=== PATIENT | female | born 1960 | race Hispanic/Latino ===

== ENCOUNTER 2020-04-25 17:30 | Inpatient (IN) | payer BC, OTHER ==
[~2020-04-25] VITALS: Ht 157.5 cm; Wt 71.2 kg
--- NOTE | 2020-04-25 18:01 | NUR ---
Pt SVT on ekg monitor tech, EKG & IV done. Dr Allen at bedside with charge -RN. Crash cart at bedside at this time.
[2020-04-25] MEDS ORDERED: ADENOSINE 6MG/2ML 1 ML ONE (18:12)
[2020-04-25] MEDS ORDERED: METOPROLOL TARTRATE INJ 1 MG/ML VIAL IV ONE (18:15)
[2020-04-25] MEDS ORDERED: SODIUM CHLORIDE 0.9% 1000ML 1,000 ML IV SCH (18:15)
[2020-04-25] MEDS ORDERED: SODIUM CHLORIDE 0.9% 1000ML 1,000 ML ONE (18:19)
[2020-04-25] MEDS ORDERED: METOPROLOL TARTRATE INJ 1 MG/ML VIAL ONE (18:20)
[2020-04-25 18:27] LABS: BASOPHILS # (AUTO) 0.1 (0.0-0.1); BASOPHILS % 0.8 % (0.0-1.0); EOSINOPHILS # (AUTO) 0.1 (0.0-0.4); EOSINOPHILS % 0.8 % (0.0-6.0); HEMATOCRIT 38.1 % (34.2-44.1); HEMOGLOBIN 12.7 g/dL (12.0-16.0); LYMPHOCYTES # (AUTO) 4.6 (1.0-3.2); LYMPHOCYTES % 51.5 % (18.0-39.1); MEAN CORPUSCULAR HEMOGLOBIN 29.5 pg (28-32); MEAN CORPUSCULAR HGB CONC 33.3 g/dL (31-35); MEAN CORPUSCULAR VOLUME 88.6 fL (81-99); MONOCYTES # (AUTO) 0.6 (0.2-0.8); MONOCYTES % 6.3 % (4.4-11.3); NEUTROPHILS # (AUTO) 3.6 (2.1-6.9); NEUTROPHILS % 40.4 % (38.7-80.0); PLATELET COUNT 416 x10e3/uL (140-360); RED CELL DISTRIBUTION WIDTH 12.4 % (11.7-14.4)
--- NOTE | 2020-04-25 18:30 | NUR ---
Patient HR from SVT HR:202 bpm converted to NSR HR:95 bpm post adenosine 6mg IV push was given. Pt tolerated it well with no further complaints made.
--- NOTE | 2020-04-25 18:33 | Diagnostic Imaging Report ---
EXAMINATION: CHEST SINGLE (PORTABLE) COMPARISON: None INDICATION: ^chest pain ^Y DISCUSSION: Frontal view of the chest obtained at 1819 hours. HEART AND MEDIASTINUM: The cardiomediastinal silhouette is unremarkable. LINES: Multiple EKG wires overlie the chest. LUNGS/PLEURA: The lungs are well inflated and clear. No pneumonia or pulmonary edema. No pleural effusion or pneumothorax. BONES AND SOFT TISSUES: No focal osseous lesion. The soft tissues are normal. IMPRESSION: No acute cardiopulmonary disease. Signed by: Dr. Marlee Higgins MD on 04/25/2020 6:30 PM
[2020-04-25 18:39] LABS: ALBUMIN 4.5 g/dL (3.5-5.0); ALBUMIN/GLOBULIN RATIO 1.1 (0.8-2.0); ANION GAP 17.9 mmol/L (8-16); CALCIUM 9.5 mg/dL (8.4-10.2); POTASSIUM 3.9 mmol/L (3.5-5.1)
[2020-04-25 18:45] LABS: CREATINE KINASE MB 1.9 ng/mL (0-5.0)
--- NOTE | 2020-04-25 18:48 | Emergency Department Note ---
History of Present Illnes History of Present Illness Chief Complaint: COVID PUI History of Present Illness This is a 60 year old female "I was at work when I start having left sided chest pain that radiates to my left arm and palpitation" onset 1630 this afternoon. Pt had a Hx of Tachycardia. STATES SHE DID DRINK 2 CUPS OF COFFEE TODAY, STATES HAS BEEN DEALING WITH THIS PROBLEM FOR PAST 6 YEARS. . Historian: Patient Arrival Mode: Car Onset (how long ago): hour(s) (1.5) Location: CHEST Quality: PAIN, PALPITATIONS Radiation: Reports extremity Severity: severe Onset quality: sudden Duration (how long): hour(s) (1.5) Progression: unchanged Chronicity: recurrent Context: Denies recent illness, Denies recent surgery, Denies trauma/injury Relieving factors: none Exacerbating factors: none Associated symptoms: Reports denies other symptoms Treatments prior to arrival: none Past Medical/Family History Physician Review I have reviewed the patient's past medical and family history. Any updates have been documented here. Past Medical History Recent Fever: No Clinical Suspicion of Infectio: No New/Unexplained Change in Ment: No Other Medical History: Tachycardia Past Surgical History: None Social History Smoking Cessation: Never Smoker Alcohol Use: None Any Illegal Drug Use: No Physically hurt or threatened: No Family History Family history of heart diseas: No Other family history HTN Review of Systems Review of Systems Constitutional: Reports no symptoms EENTM: Reports no symptoms Cardiovascular: Reports as per HPI Respiratory: Reports no symptoms Gastrointestinal: Reports no symptoms Genitourinary: Reports no symptoms Musculoskeletal: Reports no symptoms Integumentary: Reports no symptoms Neurological: Reports no symptoms Psychological: Reports no symptoms Endocrine: Reports no symptoms Hematological/Lymphatic: Reports no symptoms Physical Exam Related Data Triage Vital Signs Vital Signs Date Time Temp Pulse Resp B/P (MAP) Pulse Ox O2 Delivery O2 Flow Rate FiO2 04/25/20 17:58 98.8 202 16 112/99 99 Room Air Physical Exam CONSTITUTIONAL Constitutional: Present well-developed, Present well-nourished, Present distressed (MILD) HENT HENT: Present normocephalic, Present atraumatic, Present oropharynx clear/moist, Present nose normal HENT L/R: Present left ext ear normal, Present right ext ear normal EYES Eyes: Reports PERRL, Reports conjunctivae normal NECK Neck: Present ROM normal PULMONARY Pulmonary: Present effort normal, Present breath sounds normal CARDIOVASCULAR Cardiovascular: Present regular rhythm, Present heart sounds normal, Present capillary refill normal, Present tachycardia (200) GASTROINTESTINAL Abdominal: Present soft, Present nontender, Present bowel sounds normal GENITOURINARY Genitourinary: Present exam deferred SKIN Skin: Present warm, Present dry MUSCULOSKELETAL Musculoskeletal: Present ROM normal NEUROLOGICAL Neurological: Present alert, Present oriented x 3, Present no gross motor or sensory deficits PSYCHOLOGICAL Psychological: Present mood/affect normal, Present judgement normal Results Laboratory Result Diagram: 04/25/20 1700 04/25/20 1700 Laboratory Laboratory Tests Test 04/25/20 20:33 04/25/20 17:00 Creatine Kinase MB 2.80 ng/mL (0-5.0) 1.90 ng/mL (0-5.0) Troponin I 0.394 ng/mL (0-0.300) 0.046 ng/mL (0-0.300) White Blood Count 8.89 x10e3/uL (4.8-10.8) Red Blood Count 4.30 x10e6/uL (3.6-5.1) Hemoglobin 12.7 g/dL (12.0-16.0) Hematocrit 38.1 % (34.2-44.1) Mean Corpuscular Volume 88.6 fL (81-99) Mean Corpuscular Hemoglobin 29.5 pg (28-32) Mean Corpuscular Hemoglobin Concent 33.3 g/dL (31-35) Red Cell Distribution Width 12.4 % (11.7-14.4) Platelet Count 416 x10e3/uL (140-360) Neutrophils (%) (Auto) 40.4 % (38.7-80.0) Lymphocytes (%) (Auto) 51.5 % (18.0-39.1) Monocytes (%) (Auto) 6.3 % (4.4-11.3) Eosinophils (%) (Auto) 0.8 % (0.0-6.0) Basophils (%) (Auto) 0.8 % (0.0-1.0) Neutrophils # (Auto) 3.6 (2.1-6.9) Lymphocytes # (Auto) 4.6 (1.0-3.2) Monocytes # (Auto) 0.6 (0.2-0.8) Eosinophils # (Auto) 0.1 (0.0-0.4) Basophils # (Auto) 0.1 (0.0-0.1) Absolute Immature Granulocyte (auto 0.02 x10e3/uL (0-0.1) Prothrombin Time 11.6 seconds (11.9-14.5) Prothromb Time International Ratio 0.81 Activated Partial Thromboplast Time 49.0 seconds (23.8-35.5) Sodium Level 140 mmol/L (136-145) Potassium Level 3.9 mmol/L (3.5-5.1) Chloride Level 103 mmol/L (98-107) Carbon Dioxide Level 23 mmol/L (22-29) Anion Gap 17.9 mmol/L (8-16) Blood Urea Nitrogen 15 mg/dL (7-26) Creatinine 1.00 mg/dL (0.57-1.11) Estimat Glomerular Filtration Rate 57 ML/MIN (60-) BUN/Creatinine Ratio 15 (6-25) Glucose Level 146 mg/dL (74-118) Calcium Level 9.5 mg/dL (8.4-10.2) Total Bilirubin 0.5 mg/dL (0.2-1.2) Aspartate Amino Transf (AST/SGOT) 38 IU/L (5-34) Alanine Aminotransferase (ALT/SGPT) 46 IU/L (0-55) Alkaline Phosphatase 116 IU/L (40-150) Creatine Kinase 169 IU/L (29-168) Total Protein 8.5 g/dL (6.5-8.1) Albumin 4.5 g/dL (3.5-5.0) Globulin 4.0 g/dL (2.3-3.5) Albumin/Globulin Ratio 1.1 (0.8-2.0) Laboratory Tests Test 04/25/20 17:00 White Blood Count 8.89 x10e3/uL (4.8-10.8) Red Blood Count 4.30 x10e6/uL (3.6-5.1) Hemoglobin 12.7 g/dL (12.0-16.0) Hematocrit 38.1 % (34.2-44.1) Mean Corpuscular Volume 88.6 fL (81-99) Mean Corpuscular Hemoglobin 29.5 pg (28-32) Mean Corpuscular Hemoglobin Concent 33.3 g/dL (31-35) Red Cell Distribution Width 12.4 % (11.7-14.4) Platelet Count 416 x10e3/uL (140-360) Neutrophils (%) (Auto) 40.4 % (38.7-80.0) Lymphocytes (%) (Auto) 51.5 % (18.0-39.1) Monocytes (%) (Auto) 6.3 % (4.4-11.3) Eosinophils (%) (Auto) 0.8 % (0.0-6.0) Basophils (%) (Auto) 0.8 % (0.0-1.0) Neutrophils # (Auto) 3.6 (2.1-6.9) Lymphocytes # (Auto) 4.6 (1.0-3.2) Monocytes # (Auto) 0.6 (0.2-0.8) Eosinophils # (Auto) 0.1 (0.0-0.4) Basophils # (Auto) 0.1 (0.0-0.1) Absolute Immature Granulocyte (auto 0.02 x10e3/uL (0-0.1) Sodium Level 140 mmol/L (136-145) Potassium Level 3.9 mmol/L (3.5-5.1) Chloride Level 103 mmol/L (98-107) Carbon Dioxide Level 23 mmol/L (22-29) Anion Gap 17.9 mmol/L (8-16) Blood Urea Nitrogen 15 mg/dL (7-26) Creatinine 1.00 mg/dL (0.57-1.11) Estimat Glomerular Filtration Rate 57 ML/MIN (60-) BUN/Creatinine Ratio 15 (6-25) Glucose Level 146 mg/dL (74-118) Calcium Level 9.5 mg/dL (8.4-10.2) Total Bilirubin 0.5 mg/dL (0.2-1.2) Aspartate Amino Transf (AST/SGOT) 38 IU/L (5-34) Alanine Aminotransferase (ALT/SGPT) 46 IU/L (0-55) Alkaline Phosphatase 116 IU/L (40-150) Creatine Kinase 169 IU/L (29-168) Total Protein 8.5 g/dL (6.5-8.1) Albumin 4.5 g/dL (3.5-5.0) Globulin 4.0 g/dL (2.3-3.5) Albumin/Globulin Ratio 1.1 (0.8-2.0) Lab results reviewed: Yes Imaging Imaging results reviewed: Yes Impressions Procedure: [id number] DX/CHEST SINGLE (PORTABLE) Exam Date: 04/25/20 Exam Time: 1818 REPORT STATUS: Signed EXAMINATION: CHEST SINGLE (PORTABLE) COMPARISON: None INDICATION: ^chest pain ^Y DISCUSSION: Frontal view of the chest obtained at 1819 hours. HEART AND MEDIASTINUM: The cardiomediastinal silhouette is unremarkable. LINES: Multiple EKG wires overlie the chest. LUNGS/PLEURA: The lungs are well inflated and clear. No pneumonia or pulmonary edema. No pleural effusion or pneumothorax. BONES AND SOFT TISSUES: No focal osseous lesion. The soft tissues are normal. IMPRESSION: No acute cardiopulmonary disease. Signed by: Dr. 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 by ED physician Date: Apr 25, 2020 Time: 18:01 Rhythm: SVT Rate: tachycardia BPM: 202 QRS axis: normal Conduction: right bundle branch block ST segments normal: No (ST DEPRESSION IN MULTIPLE LEADS) Other findings: no other findings Clinical Impression: abnormal ECG ECG Interpretation #2: ECG: ECG 2 [employer] Dispatcher: Interpreted by ED physician Date: Apr 25, 2020 Time: 18:15 Rhythm: sinus rhythm Rate: normal BPM: 99 QRS axis: normal ST segments normal: No (NON SPECIFIC CHANGES, ST DEPRESSION HAS RESOLVED FROM PREVIOUS EKG) T waves normal: Yes Other findings: no other findings Clinical Impression: non-specific ECG Critical Care Time Total Critical Care Time (min): 31 Critcal care necessary due to: circulatory failure Critcal care time spent by me: develop tx plan w patient/surrogate, interpret cardiac output measures, evaluation patient response to tx, examination of patient, obtaining hx from patient/surrogate, order/perform tx or interventions, order/review laboratory studies, order/review radiographic studies, pulse oximetry, re-evaluation of patient condition Assessment & Plan Medical Decision Making MDM PT WITH CHEST PAIN AND IN SVT ON ARRIVAL CBC, CMP, CARDIAC ENZYMES, EKG, CXR ORDERED TO EVAL FOR MYOCARDIAL INFARCTION, ELECTROLYTE ABNORMALITY, INTRATHORACIC ABNORMALITY, 1805 ADENOSINE 6 MG IV GIVEN AND HEART RATE DECREASED TO 124 LOPRESSOR 5 MG IV ORDERED AND GIVEN 1814 1817 HEART RATE NOW 99. PT CHEST PAIN FREE AT THIS TIME AND NO LONGER IN ANY DISTRESS 2119 pt's second set of cardiac enzymes positive, pt still chest pain free at this time aspirin 324 mg po ordered lovenox 70 mg sq ordered i spoke with dr bowens and dr santos, place in obs on telemetry Reassessment Reassessment time: 21:32 Reassessment pt still chest pain free, no tachycardia at this time vitals Date Time Temp Pulse Resp B/P (MAP) Pulse Ox O2 Delivery O2 Flow Rate FiO2 04/25/20 19:30 87 16 118/86 100 Room Air 04/25/20 17:58 98.8 Assessment & Plan Final Impression: (1) SVT (supraventricular tachycardia) (2) Elevated troponin I level Depart Disposition: ADMITTED Last Vital Signs Date Time Temp Pulse Resp B/P (MAP) Pulse Ox O2 Delivery O2 Flow Rate FiO2 04/25/20 18:15 129 152/82 04/25/20 17:58 98.8 16 99 Room Air Medications in the ED Adenosine 1 ml @ ud STK-MED ONCE .ROUTE ; Start 04/25/20 at 18:12; Stop 04/25/20 at 18:06; Status DC Sodium Chloride 1,000 ml @ 0 mls/hr Q0M IV Last administered on 04/25/20at 18:17; Admin Dose 1,000 MLS/HR; Start 04/25/20 at 18:15; Stop 05/25/20 at 18:14 Metoprolol Tartrate 5 mg ONCE ONCE IV Last administered on 04/25/20at 18:15; Admin Dose 5 MG; Start 04/25/20 at 18:15; Stop 04/25/20 at 18:16; Status DC Sodium Chloride 1,000 ml @ ud STK-MED ONCE .ROUTE ; Start 04/25/20 at 18:19; Stop 04/25/20 at 18:13; Status DC Metoprolol Tartrate 5 mg STK-MED ONCE .ROUTE ; Start 04/25/20 at 18:20; Stop 04/25/20 at 18:13; Status DC ROLANDO WOODWARD MD Apr 25, 2020 18:48
[2020-04-25 19:17] LABS: INR 0.81; PROTHROMBIN TIME 11.6 seconds (11.9-14.5)
[2020-04-25 21:08] LABS: CREATINE KINASE MB 2.8 ng/mL (0-5.0)
[2020-04-25] MEDS ORDERED: ASPIRIN 81 MG CHEW TAB PO ONE (21:30)
[2020-04-25] MEDS: METOPROLOL TARTRATE 25 MG TAB PO SCH (21:45)
--- OUTSIDE RECORDS SUMMARY | 2020-04-25 21:51 | XMS REPORT | Continuity of Care Document ---
Author Author [facility] t Organization [facility] Address [address] [place] [address] Phone Unavailable Care Team Providers Care Health Services Director Name Role Phone Chetan WOODWARD Unavailable Payers Payer Name Policy Type Policy Number Effective Date Expiration Date S ource Problems This patient has no known problems. Allergies, Adverse Reactions, Alerts Allergy Name Allergy Type Status Severity Reaction(s) Onset Date Inacti ve Date Treating Clinician Comments Source aspirin DA Active [place] 2010-10-23 00:00:00 [facility] Medications This patient has no known medications. Procedures This patient has no known procedures. Results Test Description Test Time Test Comments Results Result Comments Source CHEST SINGLE (PORTABLE) 2020-04-25 18:29:00 [facility] [address] [place], [place] [address] Patient Name: MICHELLE PALMER MR #: [id number] : 1960 Age/Sex: 60/F Req #: [id number] Adm Physician: Ordered by: ROLANDO WOODWARD MD Report #: [id number] Location: ER Room/Bed: Procedure: [id number] DX/CHEST SINGLE (PORTABLE) Exam Date: 04/25/20 Exam Time: 1818 REPORT STATUS: Signed EXAMINATION: CHEST SINGLE (PORTABLE) COMPARISON: None INDICATION: chest pain Y DISCUSSION: Frontal view of the chest obtained at 1819 hours. HEART AND MEDIASTINUM: The cardiomediastinal silhouette is unremarkable. LINES: Multiple EKG wires overlie the chest. LUNGS/PLEURA: The lungs are well inflated and clear. No pneumonia or pulmonary edema. No pleural effusion or pneumothorax. BONES AND SOFT TISSUES: No focal osseous lesion. The soft tissues are normal. IMPRESSION: No acute cardiopulmonary disease. Signed by: Dr. Tamara Higgins MD on 04/25/2020 6:30 PM Dictated By: TAMARA HIGGINS MD 29 Transcribed By: LEN on 04/25/201829 COPY TO: ROLANDO WOODWARD MD
[2020-04-25] MEDS ORDERED: METOPROLOL SUCC25 MG (23:29)
[2020-04-26] VITALS (10 sets, daily range): BP systolic 130–155; BP diastolic 81–94
[2020-04-26] MEDS ORDERED: ADENOSINE 6 MG/2 ML VIAL IV ONE (00:15)
[2020-04-26] MEDS: ENOXAPARIN INJ 80 MG/0.8 ML SYR SC SCH ×2 (01:02→08:53)
[2020-04-26 06:28] LABS: CHOL/HDL RATIO 5.6 (3.0-3.6)
[2020-04-26 06:59] LABS: CREATINE KINASE MB 4.7 ng/mL (0-5.0)
--- NOTE | 2020-04-26 07:00 | NUR ---
RECEIVED BEDSIDE REPORT FROM OFF GOING NIGHT NURSE. PATIENT IN STABLE CONDITION, NO S/S OF DISTRESS NOTED. NO PAIN VOICED. TELEMETRY APPLIED. IV SITE ASYMPTOMATIC AND PATENT, TRANSPARENT DRESSING C/D/I. BED IN LOWEST POSITION AND LOCKED, SIDE RAILS X 2, NON SKID SOCKS APPLIED. CALL LIGHT WITHIN REACH.
--- NOTE | 2020-04-26 07:33 | NUR ---
NOTIFIED ABOUT THE PATIENT TROPONIN I LEVEL BEING 0.712.
[2020-04-26] MEDS: ASPIRIN 325 MG TAB EC PO SCH (08:52)
[2020-04-26] MEDS: METOPROLOL TARTRATE 25 MG TAB PO SCH ×2 (08:53→22:07)
--- NOTE | 2020-04-26 11:33 | Consultation ---
DATE OF CONSULTATION: Cardiac Consultation REASON FOR CONSULTATION: SVT, myocardial infarction, questionable demand, questionable non-STEMI. HISTORY OF PRESENT ILLNESS: A 60-year-old lady, who came to this institution complaining of severe palpitation, chest pressure, chest tightness, chest pain, severe shortness of breath. The patient was having SVT with marked ST-T segment changes and very fast heart rate. She was given adenosine with good response. The patient admitted for further management. Her cardiac enzymes increased to 0.394 and 0.712. Cardiac consultation is obtained. The patient is seen and evaluated. The patient having this problem for 6 years, but usually with minimal palpitation, however, almost a year ago or so, she had prolonged episodes and yesterday, her episode was very prolonged for more than 1 hour. She came to the hospital. The patient did to certain extent active. She denied having any angina. She does have shortness of breath on exertion class II. There is no orthopnea, no paroxysmal nocturnal dyspnea. No syncope or presyncope. Palpitation as described above. REVIEW OF SYSTEMS: Done to all 14 systems, will be summarized for clarity. GENERAL: No fever, no chills. HEENT: No vision problem. No hearing problem. PULMONARY: No cough. No hemoptysis. CARDIAC: As per acute illness. GI: No hematemesis. No melena. No constipation. No diarrhea. : No hematuria. No dysuria. MUSCULOSKELETAL: No aches. No pain except for occasional back pain and knee pain. NEUROLOGICAL: No seizure activity. No headache. No localized weakness. ENDOCRINE: No heat or cold intolerance. No diabetes mellitus. HEMATOLOGY: No easy bruising or bleeding. SOCIAL HISTORY: She is . She is nonsmoker and non-alcohol drinker. 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 HOME MEDICATIONS: Metoprolol tartrate 25 mg twice a day. ALLERGIES: NONE. PAST MEDICAL HISTORY: Only SVT as per above. FAMILY HISTORY: Father of diabetes mellitus at age 71, started with gangrene and possibly had myocardial infarction. Mother of old age at age 92. Eleven siblings, none was with premature coronary artery disease. Three healthy children, one son and two daughters. PHYSICAL EXAMINATION: VITAL SIGNS: Height 5 feet 2 inches, weight of 157 pounds, blood pressure 130/80, heart rate of 80, respiratory rate of 18, and temperature of 97.3 Fahrenheit. HEENT: Pupils are equal and reactive. NECK: No elevation of jugular venous pulsation. No bruit. CHEST: Clear to auscultation and percussion. HEART: PMI 5th left intercostal space. Normal first and second heart sounds. ABDOMEN: Soft with good bowel sounds. No organomegaly. No abdominal bruits. EXTREMITIES: No cyanosis, no clubbing, no edema. NEUROLOGIC: Nonfocal. LABORATORY DATA: Electrolytes showed sodium of 140, potassium 3.9, BUN of 15, and creatinine of 1. White blood cell count of 8.8, hemoglobin 12.7, hematocrit 38%, platelet count of 416,000. CK total and MB are normal. Troponin increased at described above 2.71. Lipid profile showed triglycerides of 219, cholesterol of 225, HDL 40, LDL of 141. EKG on admission showed SVT with marked ST-T segment changes with very fast heart rate. Following that, there are nonspecific ST changes. Chest x-ray by report showed no major abnormalities. IMPRESSION AND PLAN: 1. Supraventricular tachycardia. 2. Troponin leak, most likely demand myocardial infarction secondary to supraventricular tachycardia, doubt [id number] myocardial infarction. Options of workup are discussed. We are going to schedule the patient for an echocardiogram and nuclear cardiac stress test. Pending on the results of this test, further steps to be done. Meanwhile, we will maintain her on aspirin, beta-luisito, and she is already on Lovenox. We will follow the patient's progression with you. Pending on her course, further steps to be done. MD KEDAR Burton/ALEL /[id number] MARIANGEL
[2020-04-26] MEDS ORDERED: ONDANSETRON HCL INJ 2MG/ML 2ML 2 MG/ML VIAL IV PRN (13:30)
[2020-04-26 18:22] LABS: CREATINE KINASE MB 3.1 ng/mL (0-5.0)
--- NOTE | 2020-04-26 19:32 | NUR ---
COMPLETED BEDSIDE REPORT AND ROUNDING WITH ONCOMING NIGHT NURSE. PATIENT IN STABLE CONDITION, NO S/S OF DISTRESS NOTED. NO PAIN VOICED. TELEMETRY APPLIED. IV SITE ASYMPTOMATIC AND PATENT, TRANSPARENT DRESSING C/D/I. BED IN LOWEST POSITION AND LOCKED, SIDE RAILS X 2, NON SKID SOCKS APPLIED. CALL LIGHT WITHIN REACH.
[2020-04-26] MEDS: ACETAMINOPHEN 325 MG TAB PO PRN (22:08)
[2020-04-27] VITALS (8 sets, daily range): BP systolic 113–148; BP diastolic 77–87
--- NOTE | 2020-04-27 00:37 | History and Physical ---
CHIEF COMPLAINT: Palpitations. HISTORY OF PRESENT ILLNESS: This patient is a 60-year-old female with a history of SVT in the past. She presented to the ED with complaints of palpitations ongoing acutely that occurred earlier in the day of admission. She also reported some chest pressure and some chest tightness. Cardiology was consulted. She presented to our emergency room, was given some adenosine with good response. The patient improved and was admitted to the medical floor. While here, the patient was on cardiac telemetry with no evidence of any SVT at the current moment. Cardiology was following and cardiac stress testing was ordered including a 2D echo. REVIEW OF SYSTEMS: Pertinent positive: Chest pressure, palpitations. The rest of 14-point review of systems have been reviewed with the patient and are negative. ALLERGIES: NO KNOWN DRUG ALLERGIES. HOME MEDICATIONS: Metoprolol. PAST MEDICAL HISTORY: SVT. PAST SURGICAL HISTORY: None. PAST FAMILY HISTORY: None. SOCIAL HISTORY: No drugs. No alcohol. Does not smoke. Good social support. PHYSICAL EXAMINATION: VITAL SIGNS: Temperature is 98, pulse 85, respiratory rate is 17, blood pressure 142/94, pulse ox 98% on room air. GENERAL: Not in acute distress. Alert and oriented x3. Cooperative on examination. HEENT: Head is normocephalic, atraumatic. Eyes; pupils are equal, round, and reactive to light bilaterally. Extraocular movements intact bilaterally. Throat; no evidence of erythema or exudates in the posterior pharynx. Has poor dentition. NECK: Supple. Good range of motion. PULMONARY: Clear to auscultation bilaterally. No wheezing, rales, or rhonchi. No crackles appreciated. CARDIOVASCULAR: Positive S1, S2. No murmurs, rubs, or gallops appreciated. ABDOMEN: Soft, nondistended, and nontender to palpation. Bowel sounds present. MUSCULOSKELETAL: Strength is 5/5 throughout. No evidence of any muscle deficits on examination. NEUROLOGIC: Cranial nerves II through XII grossly intact. No evidence of any neurological deficits on exam. SKIN: Intact. Warm to touch. Good cap refill. PSYCHIATRIC: Normal affect and mood. EXTREMITIES: No edema. Good range of motion throughout. LABORATORY FINDINGS: Show white count 8.8, hemoglobin 12.7, hematocrit 38, platelets of 416. Chemistries shows a sodium 140, potassium 3.9, chloride 103, bicarb 23, anion gap of 17, BUN 15 and creatinine is 1, glucose is 146. LFTs were within normal range. CK was 169. Albumin was 4.5, and TSH was 2.2. Serology; coronavirus is pending. IMAGING STUDIES: Chest x-ray shows no acute findings. IMPRESSION: 1. Supraventricular tachycardia. 2. Chest pain secondary to #1. PLAN: At this time, adenosine was given in the ER, now the patient is back to normal sinus rhythm. Metoprolol has been ordered and scheduled. Aspirin has been ordered as well. Cardiology was consulted. A 2D echo was performed and cardiac stress testing was ordered as well. At this time, I will put on Lovenox for DVT prophylaxis. Regular diet, n.p.o. after midnight. Follow Cardiology recommendations. MD YG Chauhan/ALEL /[id number]
[2020-04-27] MEDS: SODIUM CHLORIDE 0.9% 1000ML 1,000 ML IV SCH ×3 (04:20→20:44)
--- NOTE | 2020-04-27 07:00 | NUR ---
RECEIVED BEDSIDE REPORT FROM OFF GOING NIGHT NURSE. PATIENT IN STABLE CONDITION, NO S/S OF DISTRESS NOTED. NO PAIN VOICED. TELEMETRY APPLIED. IV FLUIDS INFUSING, SITE ASYMPTOMATIC AND PATENT, TRANSPARENT DRESSING C/D/I. BED IN LOWEST POSITION AND LOCKED, SIDE RAILS X 2, NON SKID SOCKS APPLIED. CALL LIGHT WITHIN REACH.
[2020-04-27 07:05] LABS: BASOPHILS % 0.5 % (0.0-1.0); EOSINOPHILS # (AUTO) 0.1 (0.0-0.4); HEMATOCRIT 35.8 % (34.2-44.1); LYMPHOCYTES # (AUTO) 2.8 (1.0-3.2); LYMPHOCYTES % 46.8 % (18.0-39.1); MEAN CORPUSCULAR HEMOGLOBIN 29.6 pg (28-32); MEAN CORPUSCULAR HGB CONC 33.5 g/dL (31-35); MEAN CORPUSCULAR VOLUME 88.4 fL (81-99); MONOCYTES # (AUTO) 0.4 (0.2-0.8); MONOCYTES % 6.3 % (4.4-11.3); NEUTROPHILS # (AUTO) 2.7 (2.1-6.9); NEUTROPHILS % 45.4 % (38.7-80.0); PLATELET COUNT 400 x10e3/uL (140-360); RED BLOOD COUNT 4.05 x10e6/uL (3.6-5.1); RED CELL DISTRIBUTION WIDTH 12.2 % (11.7-14.4)
[2020-04-27 07:29] LABS: ALANINE AMINOTRANSFERASE 31 IU/L (0-55); ALBUMIN/GLOBULIN RATIO 1.1 (0.8-2.0); ALKALINE PHOSPHATASE 89 IU/L (40-150); ANION GAP 13.8 mmol/L (8-16); BLOOD UREA NITROGEN 11 mg/dL (7-26); BUN/CREATININE RATIO 15 (6-25); CALCIUM 9.2 mg/dL (8.4-10.2); CARBON DIOXIDE 22 mmol/L (22-29); CHLORIDE 109 mmol/L (98-107); CREATININE, SERUM 0.73 mg/dL (0.57-1.11); EST GLOMERULAR FILTRATION RATE > 60 ML/MIN (60-); GLUCOSE 96 mg/dL (74-118); POTASSIUM 3.8 mmol/L (3.5-5.1); SODIUM 141 mmol/L (136-145)
--- NOTE | 2020-04-27 07:55 | NUR ---
PATIENT OFF THE UNIT @ 3607 - WENT TO THE DIRECTOR OF STUDENT FINANCIAL AID.
[2020-04-27] MEDS ORDERED: MIDAZOLAM HCL 2 MG/2 ML VIAL ONE (07:59)
[2020-04-27] MEDS ORDERED: HEPARIN SOD (PORCINE) 1000 UNIT/ML 30ML ONE (07:59)
[2020-04-27] MEDS ORDERED: NITROGLYCERIN/D5W 200 MCG/ML 0 ML ONE (08:00)
[2020-04-27] MEDS ORDERED: LIDOCAINE HCL 2% LOCAL 20 ML VIAL ONE (08:00)
[2020-04-27] MEDS ORDERED: SODIUM CHLORIDE 0.9% 1000ML 1,000 ML ONE (08:00)
[2020-04-27] MEDS ORDERED: FENTANYL CITRATE/PF 100MCG/2 ML INJ ONE (08:00)
[2020-04-27] MEDS ORDERED: HEPARIN SOD/SOD CHLORIDE 2,000 ML ONE (08:00)
[2020-04-27] MEDS ORDERED: IOPAMIDOL 370 MG/ML 200 ML INFUS..BTL INJ ONE (08:00)
--- NOTE | 2020-04-27 08:11 | NUR ---
OBS DAY 2. PT TO REHABILITATION CLERK THIS AM. DC PLAN IS HOME ONCE CLEARED.
[2020-04-27] MEDS: ASPIRIN 325 MG TAB EC PO SCH ×2 (09:00→10:45)
--- NOTE | 2020-04-27 09:06 | NUR ---
patient arrive to the unit @ 0905 from the veterinary laboratory diagnostician. patient in stable condition, no s/s of distress noted. no pain voiced. dressing to the right groin area c/d/i. patient to remain flat in bed for 4 hours. bed flat and in lowest position and locked, side rails x 2 , non skid socks applied. call light within reach. Addendum: 04/27/20 at 1155 by Kanwal Rm RN PETAL PULSES NOTED TO BILATERAL EXTREMITIES.
[2020-04-27] MEDS: METOPROLOL TARTRATE 25 MG TAB PO SCH ×2 (10:46→20:50)
--- NOTE | 2020-04-27 11:29 | Operative Report ---
DATE OF PROCEDURE: 04/27/2020 SURGEON: Holli Whipple MD TITLE OF THE PROCEDURE: Left cardiac catheterization. INDICATIONS: Rgo-SP-niklgofeo myocardial infarction and positive nuclear cardiac stress test. TECHNICAL DETAILS: After the usual sterile preparation and draping procedure, intravenous Versed and fentanyl given for sedation, local xylocaine for anesthesia. A 4-Tongan sheath established in place. Summer left 4 and 3DRC catheter to engage the coronary. Pigtail for left ventriculogram and hemodynamic measurement. At the end of the procedure, sheath was removed. Hemostasis achieved manually. No complication. No blood loss. RESULTS: A. Coronary angiogram: 1. Left main: Free of disease. 2. LAD: There is mid LAD lesion, 40% with muscle bridge. 3. Circumflex coronary artery giving 2 large obtuse marginal with minimal plaquing. 4. Right coronary artery, minimal plaquing. a. Hemodynamic: Aorta pressure 120/80, LV pressure 120/18. b. Left ventriculogram: The right anterior oblique view showed normal size ventricle with an ejection fraction of 60% and no segmental wall motion abnormalities. IMPRESSION: A 40% mid LAD lesion with muscle bridge with preserved left ventricular systolic function. COMPLICATIONS: None. BLOOD LOSS: None. RECOMMENDATION: Medical therapy. The most likely explanation for the elevation of troponin, i.e., [id number] myocardial infarction and the positive stress test in the anterior segment is the fact the patient have muscle bridge and with tachycardia, it seems to be getting worse and that is causing the patient's symptoms of severe chest pain, chest pressure, chest tightness. Elevated cardiac enzymes and abnormality noted on the nuclear stress test. Recommendation; aggressive medical therapy and consider EP referral also. Holli Whipple MD MOJ/MODL /[id number]
--- NOTE | 2020-04-27 11:55 | NUR ---
PETAL PULSES NOTED TO BILATERAL EXTREMITIES. dressing to the right groin area c/d/i. patient to remain flat in bed for 4 hours. bed flat and in lowest position and locked, side rails x 2 , non skid socks applied. call light within reach.
[2020-04-27] MEDS: ACETAMINOPHEN 325 MG TAB PO PRN (12:52)
[2020-04-27] MEDS: TRAMADOL HCL 50 MG TAB PO PRN ×2 (14:09→20:50)
[2020-04-27] MEDS ORDERED: ENOXAPARIN SOD INJ 40 MG/0.4 ML SYR SC SCH (17:00)
--- NOTE | 2020-04-27 19:03 | NUR ---
COMPLETED BEDSIDE REPORT AND ROUNDING WITH ONCOMING NIGHT NURSE. PATIENT IN STABLE CONDITION, NO S/S OF DISTRESS NOTED. NO PAIN VOICED. TELEMETRY APPLIED. IV FLUIDS INFUSING, SITE ASYMPTOMATIC AND PATENT, TRANSPARENT DRESSING C/D/I. GROIN DRESSING C/D/I, NO BLEEDING NOTED. PETAL PULSES ARE STRONG. BED IN LOWEST POSITION AND LOCKED, SIDE RAILS X 2, NON SKID SOCKS APPLIED. CALL LIGHT WITHIN REACH.
--- NOTE | 2020-04-27 22:54 | Myoview Stress Test ---
DATE OF STUDY: 04/26/2020 09:21:00 Stress Test - Treadmill ONLY This study is going to be associated with study number dictation of [id number]. TITLE OF REPORT: Exercise nuclear stress test. INDICATION FOR STUDY: Elevated troponin and chest discomfort. TECHNICAL DETAILS: After risks, benefits, pros, and cons of today's exercise nuclear stress test explained to the patient. The patient agreed to proceed. The patient was brought down to the nuclear lab where she received a 10.8-millicurie dose of technetium-99m tetrofosmin intravenously and after 40 minutes, the patient was taken to the icomply SPECT camera for resting myocardial perfusion imaging. Afterwards, the patient was brought to the stress lab, where 12-lead EKG monitoring and blood pressure monitoring were obtained. The patient exercised on a Preston protocol for a total duration of 8 minutes and 4 seconds going from a baseline heart rate of 80 beats per minute to a maximum of 139 beats per minute, which is going above target heart rate of 138 beats per minute. At 7 minutes and 40 seconds into the exercise protocol, she received a 28.7-millicurie dose of technetium-99m tetrofosmin intravenously at a heart rate of 138 beats per minute, which is the target heart rate. Blood pressure went from a baseline of 147/99 to a maximum of 166/84. Underlying EKG, the patient had normal sinus rhythm, normal axis and peak exercise. There are borderline changes in V5, V6, but there is no chest pain, but significant for shortness of breath. After 25 minutes, the patient was then taken to the SPECT camera for stress myocardial perfusion imaging. FINDINGS: 1. Resting myocardial perfusion imaging reveals a small area of decreased uptake in the anterior wall. 2. Stress myocardial perfusion imaging reveals a small to moderate area of decreased uptake in the anterior wall. 3. The following gated measurements were obtained. End-diastolic volume 49 mm, end systolic volume 10 mm, calculated left ventricular ejection fraction is 79%. CONCLUSIONS: 1. Abnormal myocardial perfusion imaging study revealing a small to moderate area of partially reversible decreased uptake in the anterior wall where counts were notably decreased in the anterior wall lead region with inferior wall being significantly brighter, which makes us concerned for underlying disease. 2. Left ventricular ejection fraction is normal with calculated EF of 79%. 3. Exercise treadmill stress test portion of this is equivocal with borderline EKG changes in V5 and V6. 4. Overall planning the stress test explained to the patient including limitations. MD BALJINDER Crenshaw/RAYMON /[id number]
[2020-04-28] VITALS: BP 121/80
--- NOTE | 2020-04-28 02:49 | Progress Note ---
DATE: 04/27/2020 Medicine Progress Note SUBJECTIVE: The patient is seen and evaluated post cardiac cath this afternoon. She reports having a headache with some nausea. I spoke with Cardiology, who recommended EP evaluation. PHYSICAL EXAMINATION: VITAL SIGNS: Temperature is 98, pulse is 76, respiratory rate is 20, blood pressure is 132/84, pulse ox 100% on room air. GENERAL: Not in acute distress. Alert and oriented x3. Cooperative on examination. HEENT: Head; normocephalic, atraumatic. Eyes; pupils are equal, round, and reactive to light bilaterally. PULMONARY: Clear to auscultation bilaterally. No wheezing, no rales, no rhonchi, no crackles appreciated. CARDIOVASCULAR: Positive S1 and S2. No murmurs, rubs, or gallops appreciated. ABDOMEN: Soft, nondistended, and nontender to palpation. Bowel sounds present. MUSCULOSKELETAL: Strength is 5/5 throughout. No evidence of any muscle deficits on examination. No weakness appreciated. SKIN: Intact. Warm to touch. Good cap refill. PSYCHIATRIC: Normal affect and mood. LABORATORY DATA: Show white count 6, hemoglobin 12, hematocrit is 35, platelets of 400. Chemistry reviewed, stable. Coronavirus is pending. IMAGING STUDIES: None. IMPRESSION: 1. Supraventricular tachycardia-resolved. 2. Chest pain, status post left heart catheterization with no percutaneous coronary intervention indicated. PLAN: At this time, I spoke with Cardiology. The patient did not need any PCI. She will continue with cardioprotective medications as well as anti-platelet therapy. She is having some headache and nausea postprocedurally, which we will monitor closely. Continue with IV fluids, antinausea medications, as well as pain control. I spoke with Cardiology, who recommended EP, and which EP notified me that the patient can follow up as an outpatient in his office for further intervention and management. The patient verbalized understanding and agrees to plan of care. MD YG Chauhan/RAYMON /[id number]
[2020-04-28 04:00] VITALS: BP 134/79
[2020-04-28] MEDS: SODIUM CHLORIDE 0.9% 1000ML 1,000 ML IV SCH ×2 (05:53→13:19)
[2020-04-28 08:00] VITALS: BP 135/80
--- NOTE | 2020-04-28 09:00 | NUR ---
BEDSIDE SHIFT REPORT RECEIVED FROM THE DAY SHIFT COSMETIC CONSULTANT. EDUCATED PT ABOUT FALL PRECAUTIONS. PT VERBALIZED UNDERSTANDING. CALL LIGHT WITH IN EASY REACH. BED IS LOW AND LOCKED. SIDE RAILS X2. ALL SAFETY MEASURES IN PLACE. PT DENIES NEEDS AT THIS TIME.
[2020-04-28] MEDS: METOPROLOL TARTRATE 25 MG TAB PO SCH (10:00)
[2020-04-28] MEDS ORDERED: ASPIRIN 325 MG TAB EC PO SCH (10:15)
[2020-04-28 10:50] VITALS: BP 135/80
[2020-04-28 11:44] VITALS: BP 115/86
[2020-04-28 16:00] VITALS: BP 130/86
[2020-04-28] MEDS ORDERED: METOPROLOL TART50 MG PO (16:19)
[2020-04-28] MEDS ORDERED: ASPIRIN EC81 MG PO (16:20)
--- NOTE | 2020-04-28 17:30 | NUR ---
PT DISCHARGED HOME SAFELY WITH FAMILY MEMBER. PT ESCORTED VIA WHEEL CHAIR TO THE PRIVATE AUTO AT THE FRONT ENTRANCE. TELE AND LAC AND RAC IV'S REMOVED. BOTH IV TIP INTACT. DRESSINGS APPLIED. RX GIVEN. DISCHARGE INSTRUCTIONS GIVEN AND PT VERBALIZED UNDERSTANDING. PT DENIED FURTHER NEEDS.
--- NOTE | 2020-04-29 01:10 | Discharge Summary ---
FINAL DISCHARGE DIAGNOSES: 1. Supraventricular tachycardia. 2. Chest pain, status post left heart catheterization with no PCI indicated. CONSULTANTS: Cardiology and EP. VITAL SIGNS: Temperature 99.8, pulse 69, respiratory rate is 20, blood pressure 130/86, pulse ox 100% on room air. LABORATORY FINDINGS: Show white count 6, hemoglobin 12, hematocrit 35.8, platelets of 400. Coagulation; PT 11, INR 0.81, PTT 49. Chemistry; sodium 141, potassium 3.8, chloride 109, bicarb 22, anion gap of 13, BUN is 11, creatinine 0.73, glucose 96, hemoglobin A1c 5.3, calcium 9.2, total bilirubin was 1, AST 24, ALT 31, alkaline phosphatase 89. Troponins were elevated to 0.36. Albumin is 4. LDL was 141, TSH is 2.2. Serology; coronavirus not detected. MICROBIOLOGY: None. IMAGING STUDIES: Chest x-ray shows no acute cardiopulmonary disease. Cardiac stress testing was found to be abnormal. HOSPITAL COURSE: This is a 60-year-old female, who came into the ED with complaints of palpitations, in which she was given adenosine in the emergency room and back to normal sinus rhythm. Cardiology was consulted. The patient was admitted for further evaluation and management. Cardiac stress test was found to be abnormal, in which the patient underwent status post left heart catheterization. No PCI was indicated. The patient was started on rate control medications with much improvement. EP was consulted and recommended the patient to follow up in his office in 2 weeks' time. The patient's heart rate was back to baseline with no complaints. She had no chest pain. She was cleared for discharge by Cardiology and EP. On the day of discharge, vital signs were stable, labs reviewed and stable. The patient is seen and evaluated and examined thoroughly on the day of discharge with no other complaints. The patient verbalized understanding and agrees to plan of care to follow up accordingly as an outpatient with primary care physician in 1 week and EP and Cardiology in 2 weeks' time. MEDICATIONS: See med reconciliation form. DISPOSITION: Home. CONDITION: Stable. DIET: Heart healthy. In the event of any worsening symptoms, the patient was advised to come back to the ED for further evaluation. Discharge summary took greater than 35 minutes. MD YG Chauhan/ALEL /[id number]
== END 2020-04-28 17:49 | disposition home or self-care (01) | DRG 282 ==
LOC: ER 18:06 → ERHOLD 21:48 → MED/SURG3 04-26 00:14 → OBSVTOIN 04-27 13:26
PROVIDERS: ADMIT Internal Medicine; ATTEND Internal Medicine
PROC: 4A023N7 Measurement of Cardiac Sampling and Pressure, Left Heart, Percutaneous Approach (ICD-10-PCS; principal; 2020-04-27)
PROC: B2111ZZ Fluoroscopy of Multiple Coronary Arteries using Low Osmolar Contrast (ICD-10-PCS; 2020-04-27)
PROC: B2151ZZ Fluoroscopy of Left Heart using Low Osmolar Contrast (ICD-10-PCS; 2020-04-27)
DX: I21.4 Non-ST elevation (NSTEMI) myocardial infarction (principal); R51 Headache; R11.0 Nausea
CPT/HCPCS: 36415; 71045; 78452; 80053; 80061; 82550; 82553; 83036; 84443; 84484; 85025; 85610; 85730; 93005; 93017; 93306; 93458; 99152; 99153; 99284; A9502; C1766; C1887; G0378; J0153; J1644; J1650; J2001; J2250; J2405; J3010; J7030; Q9967; U0002